=== PATIENT | female | born 1995 | race Caucasian/White ===

== ENCOUNTER 2019-11-09 18:01 | Inpatient (IN) ==
[2019-11-09 18:42] LABS: Basophils # 0.1 K/mcL (0.0-0.2); Basophils % 0.5 %; Eosinophils # 0.5 K/mcL (0.0-0.6); Eosinophils % 3.5 %; Hematocrit 42.8 % (35.3-44.9); Hemoglobin 14.7 g/dL (11.5-15.4); Immature Granulocytes % 0.4 % (0-4); Lymphocytes # 4.1 K/mcL (0.6-4.6); Lymphocytes % 29.9 %; Mean Corpuscular HGB Conc 34.3 g/dL (31.6-35.5); Mean Corpuscular Hemoglobin 31.4 pg (28.0-33.3); Mean Corpuscular Volume 91.5 fL (83.0-100.0); Monocytes # 0.5 K/mcL (0.0-1.3); Monocytes % 3.8 %; Neutrophils # 8.4 K/mcL (1.6-8.9); Platelet Count 299 K/mcL (140-400); Red Blood Count 4.68 M/mcL (3.82-4.97); Red Cell Distribution Width 12.8 % (11.5-14.5); Segmented Neutrophils % 61.9 %; White Blood Count 13.6 K/mcL (4.3-11.1)
[2019-11-09 18:43] LABS: Mucus,Urine Few per lpf (None-Few); Squamous Epithelial Cell,Urine Few per hpf (None-Few)
[2019-11-09 18:52] LABS: Bilirubin,Urine Negative (Negative); Blood,Urine Trace-intact (Negative); Clarity,Urine Clear (Clear); Color,Urine Yellow (Yellow); Glucose,Urine (UA) Normal (Normal); Ketones,Urine 15 mg/dL (Negative); Leukocyte Esterase,Urine Negative (Negative); Nitrite,Urine Negative (Negative); PH,Urine 6.5 pH Units (5.0-8.0); Protein,Urine Trace mg/dL (Neg-Trace); Specific Gravity,Urine >= 1.030 (1.010-1.025); Urobilinogen,Urine Normal (Normal)
[2019-11-09 18:57] LABS: Amphetamine Screen,Urine Negative ng/mL (Cutoff=1000); Barbiturate Screen,Urine Negative ng/mL (Cutoff=200); Benzodiazepines Screen,Urine Negative ng/mL (Cutoff=200); Cannabinoid Screen,Urine Positive ng/mL (Cutoff = 50); Cocaine Screen,Urine Negative ng/mL (Cutoff= 300); Opiate Screen,Urine Negative ng/mL (Cutoff=300); Phencyclidine Screen,Urine Negative ng/mL (Cutoff=25)
[2019-11-09 19:00] LABS: Acetaminophen < 10 mcg/mL (10-20); BUN/Creatinine Ratio 18 (6-26); Blood Urea Nitrogen 14 mg/dL (6-20); Calcium 9.5 mg/dL (8.6-10.3); Carbon Dioxide 23 mEq/L (23-29); Chloride 103 mEq/L (98-107); Chol/HDL Ratio 3.6 (0-4.9); Cholesterol 180 mg/dL (< 200); Estimated Average Glucose 111 mg/dl; Ethanol < 10 mg/dL (Less than 10); Glucose 122 mg/dL (70-105); HDL Cholesterol 50 mg/dL (40-59); Hemoglobin A1C 5.5 %; LDL Cholesterol,Calculated 111 mg/dL (< 100); Osmolality,Calculated 286 (280-300); Potassium 3.6 mEq/L (3.5-5.1); Salicylate < 2.5 mg/dL (15.0-30.0); Sodium 137 mEq/L (136-145); Triglycerides 97 mg/dL (< 150); eGFR For African Americans > 60 (> 60); eGFR For Non-African Americans > 60 (> 60)
[2019-11-09] MEDS ORDERED: Mag Hydrox/Al Hydrox/Simeth 30 ML UDC PO PRN (21:18)
[2019-11-09] MEDS ORDERED: *HR* LORazepam 1 MG TABLET PO PRN (21:18)
[2019-11-09] MEDS ORDERED: MOM Conc 10 ML UD.LIQ PO PRN (21:18)
[2019-11-09] MEDS ORDERED: *HR* LORazepam 2 MG/ML VIAL IM PRN (21:18)
[2019-11-09] MEDS ORDERED: hydrOXYzine pamoate 25 MG CAPSULE PO PRN (21:18)
[2019-11-09] MEDS ORDERED: Acetaminophen 325 MG TABLET PO PRN (21:18)
[2019-11-09] MEDS ORDERED: Haloperidol Lactate 5 MG/ML VIAL IM PRN (21:18)
[2019-11-09] MEDS ORDERED: haloperidoL 5 MG TABLET PO PRN (21:18)
[2019-11-09] MEDS: traZODone 50 MG TABLET PO PRN (23:15)
[2019-11-10] MEDS: hydrOXYzine pamoate 25 MG CAPSULE PO SCH ×2 (15:30→21:11)
[2019-11-10] MEDS: Lurasidone 20 MG TABLET PO SCH (18:03)
[2019-11-10] MEDS: traZODone 50 MG TABLET PO PRN (20:09)
[2019-11-11] MEDS: hydrOXYzine pamoate 25 MG CAPSULE PO SCH ×3 (09:15→20:31)
[2019-11-11] MEDS: Lurasidone 20 MG TABLET PO SCH (17:52)
[2019-11-11] MEDS: traZODone 50 MG TABLET PO PRN (20:31)
[2019-11-12] MEDS: hydrOXYzine pamoate 25 MG CAPSULE PO SCH (08:42)
[2019-11-12 08:45] VITALS: BP 101/71
== END 2019-11-12 12:45 | disposition home or self-care (01) | DRG 885 ==
LOC: EMEROOARM 18:01 → 1ANU 21:07
PROVIDERS: ADMIT Psychiatry & Neurology Forensic Psychiatry; ATTEND Psychiatry & Neurology Forensic Psychiatry